=== PATIENT | female | born 1935 | race Caucasian/White ===

== ENCOUNTER → 2024-01-06 10:02 | Outpatient (REF) | payer OTHER, SELFPAY | LOC: HWRCS 10:02 | PROVIDERS: ATTENDING PHYSICIAN Internal Medicine | DX: R01.1 Cardiac murmur, unspecified (principal) | CPT/HCPCS: 93306 ==

== ENCOUNTER → 2024-07-26 11:23 | Outpatient (REF) | payer OTHER, SELFPAY | LOC: HWRCS 11:23 | PROVIDERS: ATTENDING PHYSICIAN Internal Medicine Cardiovascular Disease; FAMILY PHYSICIAN Internal Medicine | DX: I34.0 Nonrheumatic mitral (valve) insufficiency (principal) | CPT/HCPCS: 93306 ==

== ENCOUNTER → 2024-08-22 15:11 | Outpatient (REF) | payer OTHER, SELFPAY | LOC: HWRAD 15:11 | PROVIDERS: ATTENDING PHYSICIAN Internal Medicine | DX: M54.2 Cervicalgia (principal) | CPT/HCPCS: 72050 ==

== ENCOUNTER → 2024-09-16 09:58 | Outpatient (REF) | payer OTHER, SELFPAY | LOC: HWRAD 09:58 | PROVIDERS: ATTENDING PHYSICIAN Internal Medicine | DX: I88.9 Nonspecific lymphadenitis, unspecified (principal); R59.0 Localized enlarged lymph nodes | CPT/HCPCS: 76536 ==

== ENCOUNTER 2024-10-26 17:14 | Emergency (ER) | payer OTHER, SELFPAY ==
[2024-10-26 17:16] VITALS: BP 163/72
[2024-10-26] MEDS: LIDOCAINE 4% PATCH 1 PATCH TOPICAL (20:28)
[2024-10-26] MEDS: TYLENOL 650 MG PO (20:28)
--- NOTE | 2024-10-26 20:40 | ED.GENMED ---
History of Present Illness
General
Chief Complaint: Musculo-Skeletal Complaint
Source: patient
Exam Limitations: none
Time Seen by Provider: 10/26/24 19:21
Nursing documentation reviewed up to this point in time: agreed with
History of Present Illness
History of Present Illness:
pt is a 89 y/o F with h/o htn, hld '
here with left shoulder pain after tryin to push herself out of her recliner today
she says she tried to get up and didn' quite make it and on the second attempt of pushing herself with her hands, she felt a pop in the L shoulder which is painful now iwht motion, sho extension
she feels the pain into her upper arm and into her forearm
she didn't feel any pop in the nekc
but she does have cervical disc disease and just started PT this week; she has had some neck pain ongoing; this is not new and she did not feel pop in her neck tonight
took tylenol 2 tabs at 3 pm which helped some
no numbness/weakness, chest pain, shortness fo breath
no falls
has had previous rotator cuff injury and had PT years ago, no surgery
Past History
Past History
ED Past Medical History: GERD, HTN and Hypercholesterolemia
Social History
Tobacco: Non-smoker
Alcohol: None
Review of Systems
Review of Systems
Allergies reviewed?: Yes
All Other Systems: Not applicable
Phy Exam
Physical Exam
Physical Exam:
GENERAL: Alert , in no apparent distress
EYE: pupils equal and reactive
NECK: Supple, able to extend normally but has some pain with flexion, able to flex
rotates normally
ENT: o/p clr, mmm.
CARDIAC: Regular rate and rhythm .
LUNGS: Clear breath sounds bilaterally, no acute respiratory distress, no wheezes/rales/rhonchi
ABDOMEN: Soft, without focal tenderness, no r/g, no cvat, normal bowel sounds
NEUROLOGICAL: Alert and oriented, no focal neuro deficits
SKIN: Warm and dry, skin intact.
MUSCULOSKELETAL: No edema, well perfused. neg grey's sign
pain with active extension but can extend the arm 90 degress
some pain at abduction 90 degrees but neg drop arm test
some mid pain with rotation of the shoulder
normal inspetion
nontender
no midline cervical tenderness
bicep and forearm normal, normal nv exam
PSYCH: Normal and appropriate interaction.
Course
Orders/Labs/Results
Orders:
Orders
10/26/24 18:22
CR Shoulder, Trauma - Left Urgent
Comment:
Reason For Exam: Injury
10/26/24 20:14
Acetaminophen [Tylenol] 650 mg PO NOW STA
Lidocaine [Lidocaine 4% Patch] 1 patch TOPICAL NOW STA
Apply Lidocaine patch(s) to:: LEFT SHOULDER/TRAPEZIUS
Vital Signs
Initial and Last Documented VS:
Initial Vital Signs
Temp Pulse Resp BP Pulse Ox
36.6 C 74 20 163/72 96
10/26/24 17:16 10/26/24 17:16 10/26/24 17:16 10/26/24 17:16 10/26/24 17:16
Last Documented Vital Signs
Temp Pulse Resp BP Pulse Ox
36.6 C 66 16 153/73 98
10/26/24 17:16 10/26/24 20:45 10/26/24 20:45 10/26/24 20:45 10/26/24 20:45
MDM/Problems Addressed
Differential Diagnosis Includes:
shoulder rotator cuff tear, biceps tendon injury, cervical radiculopathy
MDM/Problems Addressed:
89 y/o Fhtn, hdl
lives alone, very active
pushed up off a chair tonight and felt pop in L shoulder
since has had painful shoulder ROM
she is still able to move the shoulder
no numbness/tinglign/weakness
but some pain into her upper arm and forearm
no cp, sob
has had ongoin neck pain but this is unchanged and minimal
on exam well appearing
younger than stated age
full neck rom but mild pain with flexion
mild L trap tenderness
L shoulder normal inspection; notnender but pain reproduced with movement, sho over 90 degrees extension and abduction
suspect rotator cuff tendinopathy
xray indep reviewed
mild oa but no fx
d/w ed attending
tyleol, lidocaine
unlikely to be cervical radiculopathy but considering her rf with djd in her nekc her pain in to her L arm could potentioally be this; no cauda equina; ocntinue treatment
doubt this is a vascular cause; she has very reproducible pain with ROM of her L shoulder, no dizziness, no cp, no sob
*Critical Care Note
Total Time (30-74mins, 75-104mins- exclusive of procedures): Not Applicable
ED Attending Note
-
Portions of this chart may have been created with voice recognition software.� Occasional wrong word or��sound alike� substitutions may have occurred due to the inherent limitations of voice recognition software.
Discharge Plan
Departure
Patient Disposition: Home (Routine Discharge)
Date of Disposition: 10/26/24
Time of Disposition: 20:48
Patient with high blood pressure during this ER visit?: Yes
Condition: Fair
Covid-19: Not Applicable
Discharge Problem:
Shoulder sprain, Rotator cuff injury
Instructions: Sprain (DC)
Prescriptions:
New
lidocaine 5 % adhesive patch,medicated
1 patch topical DAILY PRN (Reason: PAIN) Qty: 15 0RF
No Action
simvastatin 40 MG tablet
40 mg PO DAILY
acetaminophen [Tylenol] 325 MG capsule
325 mg PO Q4H PRN (Reason: mild pain) Qty: 25 0RF
Referrals:
Nadeem Winn MD [Active] - Follow up in 1 week
Rissa Merino MD [Family Provider] -
Activity Restrictions/Additional Instructions:
YOU MAY HAVE REINJURED YOUR ROTATOR CUFF
TRY TYLENOL 2 TABS 3 TIMES A DAY FOR 3-5 DAYS
ICE OFF AN DON
WEAR THE PATCH 12 HOURS ON 12 HOURS OFF, (ICE WHEN THE PATCH IS OFF)
YOU ALSO COULD HAVE SOME PAIN COMING FROM YOUR NECK BUT IT SEEMS THAT THIS IS MONA YOUR SHOULDER AT THE MOMENT
CALL DR. WINN FOR FOLLOW UP
RETURN FOR: WORSE PAIN, NUMBNESS/WEAKNESS IN THE ARM, CHST PAIN, SHORTNESS OF BREAHT, DOUBLE VISION, SEVERE NECK PAIN,, OR ANY CONCERNS.
WEAR THE SLING WHILE AWAKE IF YOU THINK IT HELPS; IF YOU WOULD RATHER HOLD YOUR ARM BY YOUR SIDE, THAT IS FINE TOO
BUT BE SURE TO MOVE YOUR ARM EVERY FEW HOURS TO AVOID FROZEN SHOULDER
Interventions
Interventions:
*Risk Screen - Suicide Last Done: 10/26/24 17:16
*General Assessment Last Done: 10/26/24 17:16
*Neglect/Abuse Screening Last Done: 10/26/24 17:16
*Nursing Disposition Last Done: 10/26/24 21:35
ED-Musculoskeletal Assessment Last Done: 10/26/24 18:20
Discharge Date and Time
Discharge Date/Time: 10/26/24 21:35
Print Language: SAMOAN
[2024-10-26 20:45] VITALS: BP 153/73
== END 2024-10-26 21:35 | disposition home or self-care (01) ==
LOC: EMR 17:14
PROVIDERS: EMERGENCY PHYSICIAN Emergency Medicine; FAMILY PHYSICIAN Internal Medicine
DX: S43.422A Sprain of left rotator cuff capsule, initial encounter (principal); X50.1XXA Overexertion from prolonged static or awkward postures, initial encounter; I10 Essential (primary) hypertension; E78.00 Pure hypercholesterolemia, unspecified; K21.9 Gastro-esophageal reflux disease without esophagitis
CPT/HCPCS: 99283; 73030

== ENCOUNTER 2025-03-10 15:46 | Emergency (ER) | payer OTHER, SELFPAY ==
[2025-03-10 15:50] VITALS: BP 158/81
[2025-03-10 16:20] LABS: ALT (SGPT) 211 U/L (0-35); AST (SGOT) 229 U/L (14-36); Albumin 4.5 g/dl (3.5-5.0); Alkaline Phosphatase 146 U/L (38-126); Blood Urea Nitrogen 18 mg/dl (7-17); Calcium 9.5 mg/dl (8.4-10.2); Carbon Dioxide 30 mmol/L (22-30); Chloride 102 mmol/L (98-107); Glucose 127 mg/dl (70-99); Lipase 60 U/L (23-300); Potassium 3.6 mmol/L (3.5-5.1); Sodium 139 mmol/L (135-145); Total Bilirubin 1.5 mg/dl (0.2-1.3); Total Protein 7.4 g/dl (6.3-8.2); eGFR > 60.00
[2025-03-10 16:32] LABS: % Basophils 0.3 % (0-2); % Eosinophils 0.2 % (0-6); % Immature Granulocytes 0.3 % (0-0.5); % Monocytes 7.1 % (1.7-9.3); % Neutrophils 86.1 % (42.2-75.2); Absolute Lymphocytes 0.5 10^3/uL (1.2-3.4); Absolute Monocytes 0.6 10^3/uL (0.1-0.6); Absolute Neutrophils 7.8 10^3/uL (1.4-6.5); Hematocrit 37.5 % (37.0-47.0); Hemoglobin 12.6 g/dL (12.0-16.0); Mean Corp Hgb Conc. 33.6 g/dL (33.0-37.0); Mean Corpuscular Hgb 30.4 pg (27.0-31.0); Mean Corpuscular Volume 90.4 fL (81.0-99.0); Mean Platelet Volume 11.2 fL (7.4-10.4); Nucleated Red Blood Cells % 0 %; Platelet Count 165 10^3/uL (130-400); Red Blood Cell Count 4.15 10^6/uL (4.20-5.40); Red Cell Dist. Width 12.5 % (11.5-14.5); White Blood Cell Count 9.1 10^3/uL (4.8-10.8)
--- NOTE | 2025-03-10 16:38 | ED.GENMED ---
History of Present Illness
General
Chief Complaint: Abdominal Symptoms
Source: patient
Exam Limitations: none
Time Seen by Provider: 03/10/25 16:36
Nursing documentation reviewed up to this point in time: agreed with
History of Present Illness
History of Present Illness:
89 yo female w h/o cholecystectomy, Hysterectomy, HTN, HLD, GERD Hepatitis 2012, presents for upper abdominal discomfort past 5 days with poor appetite, chills. She vomited 3 times today. Denies f/c/d/c. She's been urinating more but also has been
drinking more. Moving bowels regularly every morning, no change in color of stool.
Past History
Past History
ED Past Medical History: GERD, HTN and Hypercholesterolemia
ED Past Surgical History: Cholecystectomy and Gynecological (Hysterectomy)
Social History
Tobacco: Non-smoker
Alcohol: None
Personal: Single
Living: alone
Review of Systems
Review of Systems
Allergies reviewed?: Yes
All Other Systems: ROS reviewed and negative except as documented in HPI and ROS
Constitutional: Denies fever or fatigue
Respiratory: Denies trouble breathing
Cardiac: Denies palpitations
ABD/GI: Reports abdominal pain, nausea, vomiting and anorexia; Denies diarrhea, bloody stools or black stools
: Reports frequency; Denies dysuria
Musculoskeletal: Denies edema
Skin: Reports no symptoms
Neurological: Reports no symptoms
Phy Exam
Physical Exam
Physical Exam:
GENERAL: No acute distress. A&Ox3.
CONSTITUTIONAL: Afebrile.
EYES: clear, conjunctivae normal, sclera nonicteric
ENMT: moist mucus membranes, Pharynx nl
RESPIRATORY: Regular respirations, nonlabored, lungs clear.
CARDIOVASCULAR: Regular rate and rhythm, no murmurs, no rubs.
GI: Soft, nondistended, tender to palpate mid to right upper abdomen, normal BS
MUSCULOSKELETAL: Moves with ease. Well perfused.
SKIN: Warm, dry, pink
PSYCH: Normal mood and affect. Well kept, interactive and appropriate
NEUROLOGIC: Awake, alert and oriented. No focal neurological deficits
Course
Orders/Labs/Results
Orders:
Orders
03/10/25 15:56
Complete Blood Count/With Diff Urgent
Comprehensive Metabolic Panel Urgent
Lipase Urgent
03/10/25 16:56
CT Abd/pelvis W Iv Cont Urgent
Comment:
Reason For Exam: upper abd pain, elevated liver enzymes
03/10/25 18:10
0.9% Sodium Chloride 500 ml [Nss] 500 ml IV BOLUS
03/10/25 18:18
Urinalysis Reflex To Culture Urgent
Date Specimen was Collected: 03/10/25
Time Specimen was Collected: 18:15
Urine Microscopic Reflex Cult Urgent
Urine Culture Urgent
DHEERAJ Source: U
Specimen Description:
Date Specimen was Collected: 03/10/25
Time Specimen was Collected: 18:15
03/10/25 19:04
Pantoprazole [Protonix IV] 80 mg IV NOW STA
Abnormal Lab Results
03/10/25 03/10/25
15:56 18:18
RBC 4.15 L 10^6/uL
(4.20-5.40)
MPV 11.2 H fL
(7.4-10.4)
Absolute Neuts (auto) 7.8 H 10^3/uL
(1.4-6.5)
Absolute Lymphs (auto) 0.5 L 10^3/uL
(1.2-3.4)
Neutrophils % 86.1 H %
(42.2-75.2)
Lymphocytes % 6.0 L %
(20.5-51.1)
BUN 18 H mg/dl
(7-17)
Glucose 127 H mg/dl
(70-99)
Total Bilirubin 1.5 H mg/dl
(0.2-1.3)
AST 229 H U/L
(14-36)
ALT 211 H U/L
(0-35)
Alkaline Phosphatase 146 H U/L
(38-126)
Ur Occult Blood Reflex 1+ A
(Negative)
Leukocyte Esterase Rfl 2+ A
(Negative)
03/10/25 15:56
03/10/25 15:56
Vital Signs
Initial and Last Documented VS:
Initial Vital Signs
Temp Pulse Resp BP Pulse Ox
97.1 F 87 16 158/81 99
03/10/25 15:50 03/10/25 15:50 03/10/25 15:50 03/10/25 15:50 03/10/25 15:50
Last Documented Vital Signs
Temp Pulse Resp BP Pulse Ox
97.1 F 87 16 158/81 99
03/10/25 15:50 03/10/25 15:50 03/10/25 15:50 03/10/25 15:50 03/10/25 16:39
MDM/Problems Addressed
Differential Diagnosis Includes:
Choledocholithiasis, gastritis, viral illness
MDM/Problems Addressed:
89 yo female w h/o cholecystectomy, Hysterectomy, HTN, HLD, GERD Hepatitis 2012, presents for upper abdominal discomfort past 5 days with poor appetite, chills. She vomited 3 times today. Denies f/c/d/c. She's been urinating more but also has been
drinking more. Moving bowels regularly every morning, no change in color of stool.
CBC with no clinically significant abnormality.
CMP with mild elevation of liver enzymes
6:50 PM:
CAT scan abdomen pelvis with IV only contrast radiology report read: IMPRESSION:
No inflammatory soft tissue stranding, free air, or ascites. Diverticulosis. No evidence of acute diverticulitis. Mild wall thickening is demonstrated involving the distal transverse colon, splenic flexure, and descending colon, raising the
possibility of mild nonspecific colitis. No evidence of pneumatosis.
Constipation with mild colonic fecal burden.
No dilated bowel loops or evidence of bowel obstruction.
7:00 PM:
patient is feeling better, has had no vomiting, denies nausea at this time. Her abdominal discomfort is minimal
Plan:
Treat for gastritis, trial of pantoprazole, Zofran as needed, follow-up with PCP next week after outpatient lab work to have liver enzymes rechecked
Outpatient slip provided to her for the lab work.
Return instructions reviewed
Patient and daughter comfortable with this plan.
*Pulse Oximetry
SaO2: 99
Oxygen Mode of Delivery: Room air
Patient hypoxic: no
*Critical Care Note
Total Time (30-74mins, 75-104mins- exclusive of procedures): Not Applicable
ED Attending Note
-
Portions of this chart may have been created with voice recognition software.� Occasional wrong word or��sound alike� substitutions may have occurred due to the inherent limitations of voice recognition software.
Discharge Plan
Departure
Patient Disposition: Home (Routine Discharge)
Date of Disposition: 03/10/25
Time of Disposition: 19:01
Patient with high blood pressure during this ER visit?: No
Condition: Good
Discharge Problem:
Gastritis
Instructions: Gastritis - Discharge instructions, Abdominal Pain
Prescriptions:
New
pantoprazole [Protonix] 40 mg tablet,delayed release (DR/EC)
40 mg PO DAILY Qty: 10 0RF
ondansetron 4 mg tablet,disintegrating
4 mg PO Q8H PRN (Reason: nausea and vomiting) Qty: 12 0RF
No Action
simvastatin 40 MG tablet
40 mg PO DAILY
acetaminophen [Tylenol] 325 MG capsule
325 mg PO Q4H PRN (Reason: mild pain) Qty: 25 0RF
lidocaine 5 % adhesive patch,medicated
1 patch topical DAILY PRN (Reason: PAIN) Qty: 15 0RF
Referrals:
Rissa Merino MD [Family Provider, Internal Medicine] - Call in 1-3 days for appt
Activity Restrictions/Additional Instructions:
As we discussed, I sent a prescription to your pharmacy for Protonix to reduce the acid in your stomach and hopefully help you feel better. Start it tomorrow as you were given a dose here today
Have your liver enzymes rechecked next week on Thursday or Thursday. Call your family doctor Thursday make an appointment for or Thursday so she can review the lab work with you.
Over the weekend, if your symptoms worsen such as repeated vomiting despite Zofran, fever, bloody stools, worsening pain or feeling sicker in any way come back here immediately for reevaluation.
Interventions
Interventions:
*Risk Screen - Suicide Last Done: 03/10/25 17:47
*General Assessment Last Done: 03/10/25 17:47
*Neglect/Abuse Screening Last Done: 03/10/25 17:47
*ED- Fall Risk Assessment Last Done: 03/10/25 17:47
*ED COVID-19 Vaccine History Last Done: 03/10/25 17:47
*Nursing Disposition Last Done: 03/10/25 19:39
[facility] Assessment Last Done: 03/10/25 17:47
Discharge Date and Time
Discharge Date/Time: 03/10/25 19:40
Print Language: DIVEHI
[2025-03-10 17:44] VITALS: BMI 18.7
[2025-03-10] MEDS: NSS 500 IV (18:19)
[2025-03-10 18:59] LABS: Urine Albumin Negative (Neg - Trace); Urine Bilirubin Negative (Negative); Urine Character Clear (Clear); Urine Color Yellow; Urine Glucose Negative (Negative); Urine Ketone Negative (Negative); Urine Leukocyte 2+ (Negative); Urine Nitrite Negative (Negative); Urine Occult Blood 1+ (Negative); Urine Urobilinogen Negative (Neg - 1+)
[2025-03-10 19:06] LABS: Urine Red Blood Cell 0-2 /HPF (0-2)
[2025-03-10] MEDS: PROTONIX IV 80 MG IV (19:17)
== END 2025-03-10 19:40 | disposition home or self-care (01) ==
LOC: EMR 15:46
PROVIDERS: Registered Nurse; EMERGENCY PHYSICIAN Emergency Medicine; FAMILY PHYSICIAN Internal Medicine
DX: K29.70 Gastritis, unspecified, without bleeding (principal); E78.00 Pure hypercholesterolemia, unspecified; I10 Essential (primary) hypertension; K59.00 Constipation, unspecified; Z90.49 Acquired absence of other specified parts of digestive tract; Z90.710 Acquired absence of both cervix and uterus
CPT/HCPCS: 99284; 96374; 96361; 74177; 80053; 81003; 81015; 83690; 85025; 87086; Q9967

== ENCOUNTER → 2025-03-14 09:02 | Outpatient (REF) | payer OTHER, SELFPAY ==
[2025-03-14 10:34] LABS: ALT (SGPT) 90 U/L (0-35); AST (SGOT) 43 U/L (14-36); Alkaline Phosphatase 156 U/L (38-126); Blood Urea Nitrogen 22 mg/dl (7-17); Calcium 9.2 mg/dl (8.4-10.2); Carbon Dioxide 31 mmol/L (22-30); Chloride 104 mmol/L (98-107); Glucose 102 mg/dl (70-99); Potassium 4.3 mmol/L (3.5-5.1); Sodium 142 mmol/L (135-145); eGFR > 60.00
[2025-03-14 10:43] LABS: Albumin 4.3 g/dl (3.5-5.0); Total Protein 7.1 g/dl (6.3-8.2)
== END ==
LOC: REG 09:02
PROVIDERS: ATTENDING PHYSICIAN Registered Nurse; FAMILY PHYSICIAN Internal Medicine
DX: Z09 Encounter for follow-up examination after completed treatment for conditions other than malignant neoplasm (principal)
CPT/HCPCS: 36415; 80053

== ENCOUNTER → 2025-04-10 16:09 | Outpatient (REF) | payer OTHER, SELFPAY | LOC: HWRAD 16:09 | PROVIDERS: FAMILY PHYSICIAN Internal Medicine | DX: R07.81 Pleurodynia (principal) | CPT/HCPCS: 71046 ==

== ENCOUNTER → 2025-04-14 12:17 | Outpatient (REF) | payer OTHER, SELFPAY | LOC: RAD 12:17 | PROVIDERS: FAMILY PHYSICIAN Internal Medicine | DX: R91.1 Solitary pulmonary nodule (principal) | CPT/HCPCS: 71260; Q9967 ==

== ENCOUNTER → 2025-07-14 08:10 | Outpatient (REF) | payer OTHER, SELFPAY | LOC: RAD 08:10 | PROVIDERS: ATTENDING PHYSICIAN Internal Medicine | DX: R93.89 Abnormal findings on diagnostic imaging of other specified body structures (principal) | CPT/HCPCS: 71260; Q9967 ==

== ENCOUNTER → 2025-08-04 09:29 | Outpatient (REF) | payer OTHER, SELFPAY | LOC: HWRAD 09:29 | PROVIDERS: ATTENDING PHYSICIAN Internal Medicine | DX: M81.0 Age-related osteoporosis without current pathological fracture (principal) | CPT/HCPCS: 77080 ==